=== PATIENT | male | born 1960 | race Caucasian/White ===

== ENCOUNTER 2017-11-26 17:34 | Emergency (ER) | payer OTHER ==
[~2017-11-26] VITALS: Ht 182.9 cm; Wt 81.7 kg
[~2017-11-26 17:34] MED LIST: ATIVAN1 MG PO; KEFLEX500 MG PO; SEROQUEL PO; ZOLOFT 50 MG TA50 M1 PO
[2017-11-26] MEDS ORDERED: GENTAK5 ML OPHTHALMIC (18:20)
[2017-11-26 18:30] VITALS: BP 148/79
== END 2017-11-26 18:31 | disposition home or self-care (01) ==
LOC: M.ERS 17:34
DX: T15.11XA Foreign body in conjunctival sac, right eye, initial encounter (principal); F41.9 Anxiety disorder, unspecified; F32.9 Major depressive disorder, single episode, unspecified; X58.XXXA Exposure to other specified factors, initial encounter; Y93.89 Activity, other specified; Y92.89 Other specified places as the place of occurrence of the external cause; Y99.8 Other external cause status